=== PATIENT | male | born 1950 | race Caucasian/White ===

== ENCOUNTER 2017-09-08 05:55 | Day surgery (SDC) | payer OTHER ==
[~2017-09-08 05:55] MED LIST: CEFAZOLIN 2 GM/50 ML (PMX) 50 ML IVPB; SOD CHLORIDE 0.9% 1,000 ML IV
[2017-09-08] MEDS ORDERED: LABETALOL HCL 20MG INJ IV (06:00)
[2017-09-08] MEDS ORDERED: FENTAnyl 50 MCG/ML VIAL IV ×3 (06:00)
[2017-09-08] MEDS ORDERED: METOCLOPRAMIDE 10 MG INJ IV (06:00)
[2017-09-08] MEDS ORDERED: ALBUTEROL 0.083% (NEB) 2.5 MG/3 ML AMP HHN (06:00)
[2017-09-08] MEDS ORDERED: OXYCODONE/ACETAMINOPHEN (5/325) TAB PO (06:00)
[2017-09-08] MEDS ORDERED: POLYMYXIN/BACITRACIN 1L IRRIG (06:55)
[2017-09-08] MEDS ORDERED: EPHEDrine SULFATE 50 MG/5 ML SYG (07:00)
[2017-09-08] MEDS ORDERED: MIDAZOLAM 1 MG/ML 2 ML INJ (07:01)
[2017-09-08] MEDS ORDERED: FENTAnyl 50 MCG/ML VIAL (07:01)
[2017-09-08] MEDS ORDERED: PROPOFOL 20 ML (07:01)
[2017-09-08] MEDS ORDERED: LIDOCAINE 100 MG SYRINGE (07:01)
[2017-09-08] MEDS ORDERED: ONDANSETRON 4 MG INJ (07:47)
[2017-09-08] MEDS ORDERED: DEXAMETHASONE 4 MG/ML 1 ML INJ (07:47)
[2017-09-08] MEDS: BUPIVACAINE 0.25% (MPF) 30 ML INJ (08:04)
[2017-09-08] MEDS ORDERED: HYDROCODONE/APAP (5/325) TAB PO (08:30)
[2017-09-08] MEDS: ONDANSETRON 4 MG INJ IV (08:54)
[2017-09-08] MEDS: MEPERIDINE 25 MG INJ IV (08:54)
[2017-09-08] MEDS: OXYCODONE/ACETAMINOPHEN (5/325) TAB PO (10:18)
== END 2017-09-08 11:30 | disposition home or self-care (01) ==
LOC: SDS 05:55
DX: K40.30 Unilateral inguinal hernia, with obstruction, without gangrene, not specified as recurrent (principal); I10 Essential (primary) hypertension; E78.5 Hyperlipidemia, unspecified
CPT/HCPCS: 49507